=== PATIENT | female | born 1985 | race Caucasian/White ===

== ENCOUNTER 2017-08-07 06:10 | Inpatient (IN) | payer OTHER, SELFPAY ==
[2017-08-07 04:41] VITALS: BMI 30.9
[2017-08-07] MEDS: Lactated Ringers 1,000 ML 50 ML IV ×3 (06:30→16:17)
[2017-08-07 07:31] LABS: Hematocrit 37.3 % (37-47); Hemoglobin 11.8 g/dl (12.0-15.0); Mean Corp Hgb Conc 31.6 g/gl (32-36); Mean Corpuscular Hgb 23.7 pg (27.0-32.0); Mean Corpuscular Volume 74.9 fL (81-99); Platelet Count 160 K/mm3 (150-450); RBC Distribution Width CV 21.6 % (11.6-14.6); RBC Distribution Width SD 58.2 fl (35.1-43.9); Red Blood Count 4.98 M/mm3 (4.2-5.4); Scan Indicated on CBC? Y/N YES- FLAGS NOTED; White Blood Count 13.9 K/mm3 (4.4-11.0)
[2017-08-07] MEDS: Oxytocin 30 units/NS 500 ml 30 UNITS/500 ML IV.SOLN IV (07:44)
[2017-08-07] MEDS: Oxytocin 30 units/NS 500 ml 30 UNITS/500 ML IV.SOLN 334 UNITS IV (17:50)
[2017-08-07] MEDS: Oxytocin 30 units/NS 500 ml 30 UNITS/500 ML IV.SOLN 167 UNITS IV (18:20)
--- NOTE | 2017-08-07 18:46 | PCM.OB.VAG ---
Vaginal Delivery Maternal Presentation: Elective Induction Presented for elctive induction of labor at 39+ weeks. Uncomplicated . History of rapid second stage. Method of Induction: Pitocin Amniotic Membrane Rupture Type: Artificial Rupture of Membrane time: 1130 Amniotic Fluid Description: Clear Final STEVE: 08/10/17 Final STEVE Source: US <20 weeks Gestational age: 39 Weeks and 4 Days Date of Procedure: 08/07/17 Pre-Operative Diagnosis: labor Post-Operative Diagnosis: same Surgery/ Procedure Performed: Spontaneous Vaginal Delivery Anesthesiologist: Will Preciado Type of Anesthesia: Epidural Description of Procedure: Progressed to FD. With one push delivered a live male . Mouth was suctioned at delivery there was an active cry within one minute of delivery. APgars were 9/9. Delayed cord clamping was employed. The placenta delivered spontaneously intact with a centrally located 3VC. The uterus contracted well. Inspection revealed a small first degree posterior vaginal laceration. This was repaired with 3-0 rapide suture. Presentation: Vertex Placental Delivery Description: Spontaneous Placenta Disposition: [facility] Percentage of Placenta Abruption: 0 Cord Vessel Description: 3 Vessels Cord Entanglement: None Drain: Griffith to straight drain Estimated Blood Loss: 300cc Infant A gender: Male (1 minute): 9 (5 minute): 9 Episiotomy Description: None Laceration: Midline, Vaginal Extension/lac, 1st degree Medications given after delivery: IV Pitocin Complications: None
--- NOTE | 2017-08-07 18:54 | DCINST_ITS ---
Discharge Diet: No Restrictions Discharge Activity: Return to Normal Activity, May Drive, May Shower Return to work on:: 10/04/17 May shower in (days): 0 May resume sexual activity in: 4-6 weeks Call your doctor if your incision/area has: Sudden Increased Bleeding, Increased Pain/ Swelling, Increased Redness, Foul Smelling Discharge Call your doctor if you observe: Fever of 101 or Higher, Inability to urinate, Inability to have a bowel movement, Using more than one pad per hour, Shortness of breath, Chest pain, Calf discomfort, Uncontrolled pain Cleanse incision/area with: Soap & Water Additional Instructions: If you experience any of the following, contact your healthcare provider. * Bleeding that soaks a pad every hour for 2 hours * Fever 100.4 or higher * Unrelieved incision or abdominal pain * Swelling, redness, discharge or bleeding from your incision or episiotomy site * Your incision begins to separate * Problems urinating (including inability to urinate or burning while urinating) . * Visual changes * Severe headache * Flu-like symptoms * Pain or redness in one of both of your breasts * Pain, warmth, tenderness or swelling in your legs, especially the calf area * Frequent nausea and vomiting * Symptoms of depression or anxiety If you experience any of the following, call 911 or go to the nearest Emergency Room. * Chest pain * Problems breathing * Seizure activity * Partial or complete paralysis of a body part, slurred speech, weakness or drooping of the face, or a sudden inability to walk or hold your balance Allergies/Adverse Reactions: Allergies No Known Allergies Allergy (Verified 08/07/17 04:41) Medications to take at Discharge Ibuprofen [Motrin] 800 mg PO TID PRN PRN #30 tab 08/07/17 Iron 1 tab PO DAILY 08/07/17 [id number]/FA/Omega3/Dha/Fish Oil [ Gummies] 1 tab PO DAILY 08/07/17 The following prescriptions were given: Ibuprofen [Motrin] 800 mg PO TID PRN PRN #30 tab PRN Reason: pain or cramping Please Follow Up With: Enoc Bell MD When: 6 weeks Primary Care Physician: Care Physician,No Primary [Primary Care Provider] - Proposed Discharge Date: 08/09/17
[2017-08-07] MEDS: Ibuprofen 600 MG Tablet PO (21:10)
[2017-08-08] VITALS (7 sets, daily range): BP systolic 99–121; BP diastolic 57–73; PULSE 72–83; RESP 16–20; TEMP 36.5–37.4; O2SAT 97–100
[2017-08-08] MEDS: Acetaminophen 500 MG Tablet 1000 MG PO ×2 (02:06→14:19)
[2017-08-08] MEDS: Ibuprofen 600 MG Tablet PO ×3 (04:35→17:55)
[2017-08-08 05:03] LABS: Hematocrit 33.8 % (37-47); Hemoglobin 10.7 g/dl (12.0-15.0); Mean Corp Hgb Conc 31.7 g/gl (32-36); Mean Corpuscular Hgb 23.7 pg (27.0-32.0); Mean Corpuscular Volume 74.8 fL (81-99); Platelet Count 146 K/mm3 (150-450); RBC Distribution Width CV 21.6 % (11.6-14.6); RBC Distribution Width SD 58.1 fl (35.1-43.9); Red Blood Count 4.52 M/mm3 (4.2-5.4); White Blood Count 13.8 K/mm3 (4.4-11.0)
[2017-08-08 05:20] LABS: Scan Indicated on CBC? Y/N YES- FLAGS NOTED
[2017-08-08 05:22] LABS: Differential Comment SCANNED
--- NOTE | 2017-08-08 08:02 | PCM.PN.OB ---
Subjective: SOme cramping with breast feeding otherwise no complaints. Bleeding normal PP day#1. Objective: Afeb VSS. Hgb stable - Physical Exam General: Alert, Oriented x3, Cooperative, No apparent distress Lungs: Clear to auscultation, Normal air movement Cardiovascular: Regular rate, Regular Rhythm Abdomen: Soft, Non Tender, Non-Distended, - - Fundus firm nontender Extremities: No edema Skin: No rashes Neurological: Neuro grossly intact Psych/Mental Status: Normal Affect Vital Signs Temp Pulse Resp BP Pulse Ox 98.4 F 72 16 121/73 H 98 08/08/17 04:34 08/08/17 04:34 08/08/17 04:34 08/08/17 04:34 08/08/17 04:34 Oxygen Delivery Method Room Air Weight: 191 lb 12.8 oz Body Mass Index (BMI) 30.9 Intake and Output for Last 24 Hours 08/06/17 08/07/17 08/08/17 23:59 23:59 23:59 Intake Total 5287 / 5287 Output Total 2350 / 2350 500 / 500 Balance 2937 / 2937 -500 / -500 Laboratory Tests Past 24 Hrs 08/07/17 08/07/17 08/08/17 06:30 06:30 04:42 WBC 13.8 H RBC 4.52 Hgb 10.7 L Hct 33.8 L MCV 74.8 L MCH 23.7 L MCHC 31.7 L RDW 21.6 H RDW Differential 58.1 H Plt Count 146 L Differential Comment COMMENT SCANNED Blood Type B POSITIVE Antibody Screen NEGATIVE Assessment/Plan DOing well on PP day#1. WOUld like early discharge. No contraindications for this. Home going instructions and warnings given.
--- NOTE | 2017-08-08 08:05 | PCM.DC.SUM ---
Discharge Date and Diagnosis Date of Admission: 08/07/17 Date of Discharge: 08/08/17 - Primary Discharge Diagnosis S/P Hospital Course and Treatment Consultations 08/07/17 06:17 Consult: Anesthesia Routine Comment: Reason For Exam: LABOR Operations: None Procedures: - - Pitocin induction, epidural, Summary of Care Provided: The patient is a 32 year old F [admitted at 39w4d [facility] for elective induction of labor. Pitocin induction performed with resultant uncomplicated vaginal delivery. Discharged home on PP day#1.] Discharge Diet: No Restrictions Discharge Activity: Return to Normal Activity, May Drive, May Shower Return to work on:: 10/04/17 May shower in (days): 0 May resume sexual activity in: 4-6 weeks Call your doctor if your incision/area has: Sudden Increased Bleeding, Increased Pain/ Swelling, Increased Redness, Foul Smelling Discharge Call your doctor if you observe: Fever of 101 or Higher, Inability to urinate, Inability to have a bowel movement, Using more than one pad per hour, Shortness of breath, Chest pain, Calf discomfort, Uncontrolled pain Cleanse incision/area with: Soap & Water Home Medications: Medications to take at Discharge Ibuprofen [Motrin] 800 mg PO TID PRN PRN #30 tab 08/07/17 Iron 1 tab PO DAILY 08/07/17 [id number]/FA/Omega3/Dha/Fish Oil [ Gummies] 1 tab PO DAILY 08/07/17 Following Prescrptions Were Given to Patient: Ibuprofen [Motrin] 800 mg PO TID PRN PRN #30 tab PRN Reason: pain or cramping Primary Care Physician: Care Physician,No Primary [Primary Care Provider] - Please Follow Up With: Enoc Bell MD When: 6 weeks Disposition: Home Minutes spent on discharge:: 15 Patient Condition:: Good Meaningful Use Info Meaningful Use Diagnoses (Choose all that apply): None applicable
== END 2017-08-08 20:05 | disposition home or self-care (01) | DRG 775 ==
LOC: WPOUT 06:20
PROVIDERS: Admitting Provider Obstetrics & Gynecology; Visit Provider Obstetrics & Gynecology
DX: O62.3 Precipitate labor (principal); O70.0 First degree perineal laceration during delivery; Z37.0 Single live birth; Z3A.39 39 weeks gestation of pregnancy
CPT/HCPCS: 59025; 59050; 85027; 86850; 86900; 99218; J7120; A4216; G0378

== ENCOUNTER → 2017-11-19 08:04 | Outpatient (CLI) | payer OTHER, SELFPAY | PROVIDERS: Visit Provider Obstetrics & Gynecology | DX: Z01.818 Encounter for other preprocedural examination (principal) ==

== ENCOUNTER → 2018-04-22 15:15 | Outpatient (CLI) | payer OTHER, SELFPAY | PROVIDERS: Referring Provider Obstetrics & Gynecology; Visit Provider Obstetrics & Gynecology | DX: Z12.4 Encounter for screening for malignant neoplasm of cervix (principal) | CPT/HCPCS: 87624; 88175; G0145 ==